=== PATIENT | female | born 1990 | race Caucasian/White ===

== ENCOUNTER 2025-08-08 09:50 | Emergency (ER) | payer MEDICAID ==
[~2025-08-08] VITALS: Ht 170.2 cm; Wt 109.0 kg
[2025-08-08 09:55] VITALS: O2SAT 98
[2025-08-08 11:51] LABS: BASOPHILS % 0.1 % (0.0-2.0); EOSINOPHILS % 1.7 % (0.0-5.0); HEMATOCRIT. 34.1 % (36.0-48.0); HEMOGLOBIN. 11.6 g/dL (12.0-16.0); LYMPHOCYTES % 16.1 % (20.0-50.0); MEAN PLATELET VOLUME 7.9 fl (7.4-10.4); MONOCYTES % 8.7 % (2.0-8.0); NEUTROPHILS % 73.4 % (40.0-76.0); PLATELET 194 x1000/uL (130-400); RED BLOOD CELL COUNT 3.36 mill/uL (4.2-5.4); RED CELL DISTRIBUTION WIDTH 13.8 % (11.6-14.6)
[2025-08-08 11:52] LABS: CREATININE 0.9 mg/dL (0.6-1.0); UREA NITROGEN BLOOD 9 mg/dL (9-23)
[2025-08-08 14:22] VITALS: BP 117/75; PULSE 102; RESP 19; TEMP 36.8; O2SAT 99
== END 2025-08-08 14:26 | disposition home or self-care (01) ==
LOC: ER 09:50
DX: R55 Syncope and collapse (principal); J45.909 Unspecified asthma, uncomplicated; Z85.841 Personal history of malignant neoplasm of brain
CPT/HCPCS: 80048; 85025; 36415; 70450; 93005; 99284; Z7610; A4606